=== PATIENT | female | born 1990 | race Caucasian/White ===

== ENCOUNTER 2022-11-23 12:27 | Outpatient (RCR) | payer OTHER, SELFPAY ==
--- NOTE | 2022-11-23 14:24 | PC.NURSE ---
In- 1227 Out- 1405 Reason for visit: latch issues with nipple shield use History: mother of baby girl Yumiko is 18 days from a primary section for breech presentation at 39 weeks gestation at [facility]. Mother states her milk came in on day 3. She has used a nipple shield for every about 7-10 times a day. Supplementing milk supply with an electric double pump 2-3 times a day. Recently introduced bottle feeding to supplement with breast milk two days ago. History: was brought into the world via section related to breech presentation. Mother states there's some torticollis that has improved. Infant has an asymmetrical mouth, a tight tongue that moves past the gumline, and tends to suck the bottom lip instead of flange out. Observations: Mother applies the nipple shield, then latches infant. Mother states she uses the nipple shield with each and doesn't practice with removing it, then latching without. RN visualizes good sucking rhythm and offers assistance with removing the nipple shield and mother agrees to attempt latch without the nipple shield. latches optimally to the right breast. There are times pulls back on the breast and is fussy. Mother is encouraged to gently compress her breast as breast feeds to improve drinking at the breast rather than suckling only. Infant does make noise that leads RN to believe the let-down has occurred and infant stays latched, however, seems to gulp and sputter a bit while doing so. Encouraged mother to lead back instead of forward relaxing comfortably to allow gravity to assist with decreasing the fast flow of milk. Infant is also accustomed to receiving the milk through a nipple shield. After a 20 minute session infant was weighed and there was 14 mls transferred. is optimally latched to the left breast, swallows heard, handled the let-down better this time, then after feeding was weighed again. has a weight difference of 21 grams which is approximately the amount of milk ingested. Parents state that is gassy. Encouraged burping after each feeding. Discussion regarding supplementation after for growth related to the 35 mls ingested with a 25-30 minute session. Reviewed how to protect the milk supply, increasing the milk supply, how to assess for milk volume with measuring over time and not just after one . Encouraged milk removal with every two hours during the day, every 3 hours at night with one 4-5 break for rest. Encouraged mother to nap when possible, practice [id number] frequently. We discussed hydration, what foods to eat to help the body with the demands of milk production and how to maintain a good habit of taking in adequate calories balancing that with rest and mental health care. The best way to increase milk production is frequent consistent milk removal. We discussed the importance of using a good quality pump (mother has a Spectra) and flange fit. Reviewed how to measure and fit with guidelines provided. Resource provided to assess fit if needed with [facility] . weight: 7-1.8 Lowest weight: 6-8 Last weight: today at the office 7-2 Pre-feed weight: 7-1.7 (3224g) Post-feed weight: (3259g) ingested approximately 35mls from on both breast. Reminded parents requires 1.6 oz - 2.7 oz per feeding depending on how often infant eats in a 24 hour period. Plan of Care: Parents are going to have a vacation practicing the sandwich hold technique to assist infant with a deep latch, [id number] for regulating stress with encouraging frequent , removing milk 8-12 times a day with 1-2 times at night, and pumping when receives a bottle. Mother will use the nipple shield as needed to latch, then remove it
== END 2023-02-21 23:59 | disposition home or self-care (01) ==
LOC: ANHOBOP 12:27
PROVIDERS: PCP Pediatrics; Visit Provider Pediatrics
DX: Z39.1 Encounter for care and examination of lactating mother (principal)
CPT/HCPCS: 99203; G0463